=== PATIENT | female | born 2000 | race Caucasian/White ===

== ENCOUNTER → 2019-02-24 | Outpatient (CLI) | payer OTHER ==
--- NOTE | 2019-02-24 13:17 | Diagnostic Imaging Report ---
INDICATION: Lump in the lower outer quadrant of the right breast. TECHNIQUE: Sonographic interrogation of the area of lump in the right breast was performed. In addition, the retroareolar region and all 4 quadrants of the right breast were evaluated. FINDINGS: No sonographic abnormality is seen. No solid or cystic mass is detected. IMPRESSION: No sonographic abnormality is detected. Continued close clinical and self breast exams are recommend to confirm stability of the palpable abnormality. ACR BI-RADS Category 1: Negative. Dictated by: Dictated on workstation # [id number]
== END ==
LOC: RAD 12:12
PROVIDERS: ATTEND Nurse Practitioner Family
DX: N63.13 Unspecified lump in the right breast, lower outer quadrant (principal)
CPT/HCPCS: 76641